=== PATIENT | male | born 1985 | race Caucasian/White ===

== ENCOUNTER 2016-12-07 15:08 | Emergency (ER) | payer SELFPAY ==
[~2016-12-07] VITALS: Ht 175.3 cm; Wt 74.8 kg
[2016-12-07 16:04] LABS: BASOPHILS # (AUTO) 0.1 /CMM (0.0-0.2); BASOPHILS % (AUTO) 1.1 % (0.0-2.0); DIFF TOTAL % 100 %; EOSINOPHILS # (AUTO) 0.3 /CMM (0.0-0.7); EOSINOPHILS % (AUTO) 3.7 % (0.0-6.0); HEMATOCRIT 43 % (39-51); HEMOGLOBIN 14.7 g/dL (13.5-17.5); LYMPHOCYTES % (AUTO) 32.8 % (20.0-44.0); MEAN CORPUSCULAR HEMOGLOBIN 35 PG (26.0-33.0); MEAN CORPUSCULAR HGB CONC 34 g/dl (31.0-36.0); MEAN CORPUSCULAR VOLUME 101 fL (80-96); MONOCYTES # (AUTO) 0.6 /CMM (0.1-1.30); MONOCYTES % (AUTO) 6.6 % (2.0-12.0); NEUTROPHILS # (AUTO) 5.1 /CMM (1.8-8.9); NEUTROPHILS % (AUTO) 55.8 % (43.0-81.0); PLATELET COUNT (AUTO) 190 /CMM (150-450); RED BLOOD CELL COUNT(AUTO) 4.26 MIL/uL (4.5-6.0); WHITE BLOOD COUNT (AUTO) 9.1 K/uL (4.3-11.0)
[2016-12-07 16:11] LABS: ANION GAP 13 (5-14); CALCIUM, SERUM 8.8 mg/dL (8.5-10.1); CARBON DIOXIDE 26 mmol/L (21-32); CHLORIDE 107 mmol/L (98-107); CREATININE 0.9 mg/dL (0.6-1.3); GFR 99 mL/min (>60); GLUCOSE 124 mg/dL (74-106); POTASSIUM 3.6 mmol/L (3.5-5.1); SODIUM SERUM 143 mmol/L (136-145); UREA NITROGEN, BLOOD 8 mg/dL (7-18)
[2016-12-07 16:21] LABS: CANNABINOID, URINE NEGATIVE (NEGATIVE); PHENCYCLIDINE SCREEN,URINE NEGATIVE (NEGATIVE)
[2016-12-07] MEDS ORDERED: WATER FOR INJECTION,STERILE 10 ML ONE (17:06)
[2016-12-07] MEDS ORDERED: OLANZAPINE 10 MG VIAL IM ONE (17:06)
[2016-12-07 18:57] VITALS: BP 142/88
== END 2016-12-07 18:18 | disposition home or self-care (01) ==
LOC: EDUNIT# 15:08 → ER 15:11 → EDBD 15:11 → ER 18:18
DX: F29 Unspecified psychosis not due to a substance or known physiological condition (principal); I10 Essential (primary) hypertension; F20.9 Schizophrenia, unspecified; F17.200 Nicotine dependence, unspecified, uncomplicated
CPT/HCPCS: 36415; 80048-TC; 80305; 85025-TC; A4606; G0480; J3490; Z7610

== ENCOUNTER 2020-01-14 00:28 | Emergency (ER) | payer MEDICAID, OTHER ==
[~2020-01-14] VITALS: Ht 170.2 cm; Wt 68.0 kg
--- NOTE | 2020-01-14 00:28 | NUR ---
TO ER BED 15 AMBULATORY C/O SI WITH PLAN TO RUN INTO TRAFFIC. PT DENIES HI. PT AAOX4 NO ACUTE DISTRESS NOTED, RESP EVEN AND UNLABORED. PT CALM AND COOPERATIVE AT THIS TIME. PT ADMITS TO SMOKING BUT DENEIS DRUG USE. PLACE PT ON HOSPITAL GOWN, ALL BELONGINGS REMOVED FROM ROOM AND PLACED IN A LOCKED HOSPITAL LOCKER. 1:1 SITTER AT BEDSIDE FOR PT SAFETY.
--- NOTE | 2020-01-14 00:40 | NUR ---
URINE SPECIMEN COLLECTED AND SENT TO LAB.
--- NOTE | 2020-01-14 00:50 | NUR ---
SEEN AND EXAMINED BY .
--- NOTE | 2020-01-14 00:50 | NUR ---
ER MD AT BEDSIDE TO EVAL PT WITH ORDERS RECEIVED. WILL CARRY OUT ORDERS.
[2020-01-14 00:58] LABS: APPEARANCE,URINE Clear (CLEAR); BILIRUBIN,URINE SMALL (NEGATIVE); BLOOD, URINE Negative Ery/uL (NEGATIVE); COLOR,URINE Yellow (YELLOW); KETONES,URINE 15 (NEGATIVE); LEUKOCYTE ESTERASE ,URINE Negative (NEGATIVE); NITRITE, URINE Negative (NEGATIVE); PROTEIN,URINE Negative (NEGATIVE); UGLUCOSE Negative (NEGATIVE)
[2020-01-14 01:02] LABS: BASOPHILS % (AUTO) 0.7 % (0.0-2.0); EOSINOPHILS % (AUTO) 2.1 % (0.0-6.0); HEMATOCRIT 39 % (39-51); HEMOGLOBIN 13.8 g/dL (13.5-17.5); LYMPHOCYTES # (AUTO) 2.1 /CMM (0.8-4.8); LYMPHOCYTES % (AUTO) 34.9 % (20.0-44.0); MEAN CORPUSCULAR HGB CONC 35 g/dl (31.0-36.0); MEAN CORPUSCULAR VOLUME 100 fL (80-96); MONOCYTES # (AUTO) 0.5 /CMM (0.1-1.30); MONOCYTES % (AUTO) 8.2 % (2.0-12.0); NEUTROPHILS # (AUTO) 3.2 /CMM (1.8-8.9); NEUTROPHILS % (AUTO) 54.1 % (43.0-81.0); PLATELET COUNT (AUTO) 184 /CMM (150-450); RED BLOOD CELL COUNT(AUTO) 3.91 MIL/uL (4.5-6.0); WHITE BLOOD COUNT (AUTO) 5.9 K/uL (4.3-11.0)
[2020-01-14 01:09] LABS: CALCIUM, SERUM 8.6 mg/dL (8.5-10.1); CARBON DIOXIDE 30 mmol/L (21-32); CHLORIDE 103 mmol/L (98-107); CREATININE 0.9 mg/dL (0.6-1.3); GLUCOSE 145 mg/dL (74-106); POTASSIUM 3.6 mmol/L (3.5-5.1); SODIUM SERUM 140 mmol/L (136-145); UREA NITROGEN, BLOOD 20 mg/dL (7-18)
[2020-01-14 01:15] LABS: ACETAMINOPHEN 0 ug/ml (10-30); ALANINE AMINOTRANSFERASE 52 U/L (12-78); ALBUMIN 3.8 g/dL (3.4-5.0); ALCOHOL, BLOOD < 3 mg/dL (0-0); ALKALINE PHOSPHATASE 68 U/L (46-116); ASPARTATE AMINOTRANSFERASE 38 U/L (15-37); BILIRUBIN,DIRECT 0.2 mg/dL (0.0-0.2); BILIRUBIN,TOTAL 0.6 mg/dL (0.2-1.0); SALICYLATE 0.6 mg/dL (2.8-20.0); TOTAL PROTEIN, SERUM 7.1 g/dL (6.4-8.2)
--- NOTE | 2020-01-14 01:27 | NUR ---
PT ASLEEP, NO ACUTE DISTRESS NOTED, RESP EVEN AND UNLABORED. CALL LIGHT WITHIN REACH. 1:1 SITTER REMAINS AT BEDSIDE FOR PT SAFETY.
--- NOTE | 2020-01-14 01:33 | NUR ---
CLINICAL INFORMATION FAXED TO [facility]
--- NOTE | 2020-01-14 03:52 | NUR ---
PT ACCEPTED TO [facility] ACCE[facility]ING MD: DR. MARTIN NUMBER FOR REPORT: [phone] [facility] ETA 0440 TRIP #[id number]
[2020-01-14 04:00] VITALS: BP 129/77
--- NOTE | 2020-01-14 04:00 | NUR ---
REPORT GIVEN TO SIDRA RIVAS OF [facility] FOR ANGIE.
--- NOTE | 2020-01-14 05:06 | NUR ---
REPORT GIVEN TO EMS FOR PT TRANSFER TO [facility].
== END 2020-01-14 05:30 ==
LOC: ER 00:33
DX: R45.851 Suicidal ideations (principal); I10 Essential (primary) hypertension; F20.9 Schizophrenia, unspecified; F17.200 Nicotine dependence, unspecified, uncomplicated
CPT/HCPCS: 36415; 80048; 80076; 80305; 80307; 80329; 81001; 85025; 99285; G0480; 81000-TC

== ENCOUNTER 2020-02-24 22:06 | Emergency (ER) | payer MEDICAID ==
--- NOTE | 2020-02-24 22:25 | NUR ---
pt called to be triaged, pt refused to answer any questions. pt was then asked to go back in waiting room. pt walked out to waiting room, upon exiting patient tried to punch, pt's hand hit the wall. pt then left the facility. called security at this time
== END 2020-02-24 22:31 | disposition left against medical advice (07) ==
LOC: ER 22:08
DX: Z53.21 Procedure and treatment not carried out due to patient leaving prior to being seen by health care provider (principal)

== ENCOUNTER 2020-07-07 05:50 | Emergency (ER) | payer MEDICAID ==
[~2020-07-07] VITALS: Ht 170.2 cm; Wt 68.0 kg
--- NOTE | 2020-07-07 05:55 | NUR ---
TO ER BED 15 AMBULATORY C/O SI WITH PLAN TO RUN INTO TRAFFIC. DENIES HI. PT AAOX4 NO ACUTE DISTRESS NOTED, RESP EVEN AND UNLABORED. PT CALM AND COOPERATIVE AT THIS TIME. PENDING ER MD TREVIZO.
--- NOTE | 2020-07-07 06:00 | NUR ---
URINE SAMPLE COLLECTED AND SENT TO LAB.
--- NOTE | 2020-07-07 06:11 | NUR ---
SECURITY AT BEDSIDE FOR WANDING.
[2020-07-07 06:56] LABS: BASOPHILS % (AUTO) 0.5 % (0.0-2.0); EOSINOPHILS % (AUTO) 0.4 % (0.0-6.0); HEMATOCRIT 46 % (39-51); HEMOGLOBIN 15.9 g/dL (13.5-17.5); LYMPHOCYTES # (AUTO) 1.5 /CMM (0.8-4.8); LYMPHOCYTES % (AUTO) 19.4 % (20.0-44.0); MEAN CORPUSCULAR HGB CONC 35 g/dl (31.0-36.0); MEAN CORPUSCULAR VOLUME 102 fL (80-96); MONOCYTES # (AUTO) 0.7 /CMM (0.1-1.30); MONOCYTES % (AUTO) 8.3 % (2.0-12.0); NEUTROPHILS # (AUTO) 5.6 /CMM (1.8-8.9); NEUTROPHILS % (AUTO) 71.4 % (43.0-81.0); PLATELET COUNT (AUTO) 181 /CMM (150-450); RED BLOOD CELL COUNT(AUTO) 4.48 MIL/uL (4.5-6.0); WHITE BLOOD COUNT (AUTO) 7.9 K/uL (4.3-11.0)
[2020-07-07 07:04] LABS: ALANINE AMINOTRANSFERASE 39 U/L (12-78); ALBUMIN 4.6 g/dL (3.4-5.0); ALCOHOL, BLOOD < 3 mg/dL (0-0); ALKALINE PHOSPHATASE 86 U/L (46-116); ASPARTATE AMINOTRANSFERASE 29 U/L (15-37); BILIRUBIN,DIRECT 0.1 mg/dL (0.0-0.2); BILIRUBIN,TOTAL 0.6 mg/dL (0.2-1.0); CALCIUM, SERUM 9.8 mg/dL (8.5-10.1); CARBON DIOXIDE 30 mmol/L (21-32); CHLORIDE 101 mmol/L (98-107); GLUCOSE 119 mg/dL (74-106); POTASSIUM 4.4 mmol/L (3.5-5.1); SODIUM SERUM 140 mmol/L (136-145); TOTAL PROTEIN, SERUM 8.5 g/dL (6.4-8.2); UREA NITROGEN, BLOOD 19 mg/dL (7-18)
--- NOTE | 2020-07-07 07:12 | NUR ---
ASSESSED PT ON BED AWAKE AND ALERT, NOT IN RESPIRATORY DISTRESS, V/S STABLE, KEPT RESTED AND COMFORTABLE. WILL CONTINUE TO MONITOR.
[2020-07-07 07:21] LABS: ACETAMINOPHEN < 10 ug/ml (10-30); SALICYLATE 1.2 mg/dL (2.8-20.0)
--- NOTE | 2020-07-07 07:56 | NUR ---
CALLED LAB FOR URINE DRUGSCREEN RESULT. PER CLS WILL CALL BACK IN 10 MINS.
[2020-07-07 08:07] LABS: APPEARANCE,URINE CLOUDY (CLEAR); BILIRUBIN,URINE SMALL (NEGATIVE); BLOOD, URINE NEGATIVE Ery/uL (NEGATIVE); COLOR,URINE YELLOW (YELLOW); KETONES,URINE NEGATIVE (NEGATIVE); LEUKOCYTE ESTERASE ,URINE NEGATIVE (NEGATIVE); NITRITE, URINE NEGATIVE (NEGATIVE); PROTEIN,URINE TRACE mg/dl (NEGATIVE); UGLUCOSE NEGATIVE (NEGATIVE); UROBILINOGEN,URINE 0.2 EU/dL (0.2)
[2020-07-07 08:22] LABS: BACTERIA,URINE None seen /HPF (None Seen); RBC,URINE NONE SEEN /HPF (0-2); WBC,URINE NONE SEEN /HPF (0-3)
[2020-07-07 08:23] LABS: SQUAMOUS EPITHELIAL CELL,UR None Seen /HPF (None Seen); URINE AMORPHOUS URATE Many /HPF (None Seen)
--- NOTE | 2020-07-07 09:02 | NUR ---
[phone]
--- NOTE | 2020-07-07 10:41 | NUR ---
Patient is a 35-year-old male who presented to [facility] ER with suicidal ideation. Per MD note, Patient states he was last hospitalized approximately 2 to 3 weeks ago at [facility]. Currently he states that he feels suicidal and wants to run in front of traffic. Patient is alert and oriented x4. Patient was receptive to speaking with this SW as he sat up and made direct eye contact. Patient confirmed demographics including date of and social security number. Per patient, patient is homeless and has been for 5 years. Patient states his general area is [place]. Patient reports he has no family or friends. Patient reports that he is not working nor receiving government aid. Per patient, he knows where to get food and take a shower. Patient denies alcohol, drug, and cigarette use. Per patient, he was diagnosed with schizophrenia in 2009. Patient reports that he is currently not taking his medications because he has not been able to afford them. Patient currently reports auditory hallucinations, per patient Hearing some right now, telling me to do some crazy stuff. Patient denies visual hallucinations. Patient reports current suicidal ideation to run into traffic. Patient denies homicidal ideation. Patient did not want homeless resources that SW offered the patient; patient did browse through the resource packet offered and stated, I know all of these places already. And returned resource packet to this SW. Per patient, he would like to enter voluntary psychiatric treatment. Per neurology physician assistantKeely Panchal, he has faxed over clinicals to [facility] Intake per request of PARALEGAL SECRETARYSIDRA OHARA to follow up with [facility]. This SW to remain available for all needs regarding this patient.
--- NOTE | 2020-07-07 11:05 | NUR ---
SPOKED TO SMITA DIRECTOR PROFESSIONAL SERVICES AT [facility]. WILL CALL BACK AGAIN IF PT WILL BE ACCEPTED AT [place] [facility] OR [facility].
--- NOTE | 2020-07-07 11:19 | NUR ---
BEATA CALLED PT IS BEING ACC[facility]ED TO [facility] MD MARTIN UNIT TWO. CALL [phone] FOR REPORT.
--- NOTE | 2020-07-07 11:34 | NUR ---
TRANSPORT CALLED [facility] [phone] ETA 1430 PER GURDEEP.
--- NOTE | 2020-07-07 11:36 | NUR ---
REPORT GIVEN TO SIDRA VALDOVINOS OF [facility] FOR [facility].
--- NOTE | 2020-07-07 13:00 | NUR ---
FOOD TRAY PROVIDED
--- NOTE | 2020-07-07 13:10 | NUR ---
PT STATED HE DOESNT WANT TO PROCEED FOR PSYCH ADMISSION AND HE IS NOT SUICIDAL ANYMORE. .
--- NOTE | 2020-07-07 13:15 | NUR ---
Patient given written and verbal discharge instructions. Patient verbalizes understanding of instructions. Patient is ambulatory with steady gait. Refuses offer of fpc placement. Patient given list of available shelters in surrounding area.
[2020-07-07 13:16] VITALS: BP 136/88
== END 2020-07-07 13:16 | disposition home or self-care (01) ==
LOC: ER 05:54
DX: R45.851 Suicidal ideations (principal); F20.9 Schizophrenia, unspecified; I10 Essential (primary) hypertension; F17.200 Nicotine dependence, unspecified, uncomplicated
CPT/HCPCS: 36415; 80048; 80076; 80305; 80307; 80329; 81001; 85025; 99285; G0480; 81000-TC

== ENCOUNTER 2020-07-19 06:28 | Emergency (ER) | payer MEDICAID ==
[~2020-07-19] VITALS: Ht 170.2 cm; Wt 68.0 kg
--- NOTE | 2020-07-19 06:52 | NUR ---
PATIENT CAME TO ER BED SIPLANS TO OVERDOSE ON MEDICATIONS. PATIENT AMBULATORY WITH A STEADY GAIT. BREATHING EVENLY AND UNLABORED ON ROOM AIR. PATIENT'S BELONGINGS ARE REMOVED AND PLACED IN LOCKER. PATIENT CHANGED INTO A GOWN.
--- NOTE | 2020-07-19 07:00 | NUR ---
URINE COLLECTED AND SENT TO THE LAB FOR ANGIE.
[2020-07-19 07:56] LABS: APPEARANCE,URINE Clear (CLEAR); BILIRUBIN,URINE MODERATE (NEGATIVE); BLOOD, URINE Negative Ery/uL (NEGATIVE); COLOR,URINE Dark (YELLOW); KETONES,URINE 40 (NEGATIVE); LEUKOCYTE ESTERASE ,URINE Negative (NEGATIVE); NITRITE, URINE Negative (NEGATIVE); PROTEIN,URINE Negative (NEGATIVE); UGLUCOSE Negative (NEGATIVE); UROBILINOGEN,URINE 0.2 EU/dL (0.2)
[2020-07-19 07:58] LABS: BACTERIA,URINE Rare /HPF (None Seen); RBC,URINE 0-2 /HPF (0-2); SQUAMOUS EPITHELIAL CELL,UR Few /HPF (None Seen); WBC,URINE 0-2 /HPF (0-3)
[2020-07-19 08:00] LABS: BASOPHILS % (AUTO) 0.5 % (0.0-2.0); EOSINOPHILS % (AUTO) 2.8 % (0.0-6.0); HEMATOCRIT 41 % (39-51); HEMOGLOBIN 14.3 g/dL (13.5-17.5); LYMPHOCYTES # (AUTO) 1.4 /CMM (0.8-4.8); LYMPHOCYTES % (AUTO) 24.1 % (20.0-44.0); MEAN CORPUSCULAR HGB CONC 35 g/dl (31.0-36.0); MEAN CORPUSCULAR VOLUME 102 fL (80-96); MONOCYTES # (AUTO) 0.4 /CMM (0.1-1.30); MONOCYTES % (AUTO) 7.3 % (2.0-12.0); NEUTROPHILS # (AUTO) 3.8 /CMM (1.8-8.9); NEUTROPHILS % (AUTO) 65.3 % (43.0-81.0); PLATELET COUNT (AUTO) 150 /CMM (150-450); WHITE BLOOD COUNT (AUTO) 5.9 K/uL (4.3-11.0)
[2020-07-19 08:24] LABS: ALANINE AMINOTRANSFERASE 19 U/L (12-78); ALBUMIN 4.1 g/dL (3.4-5.0); ALCOHOL, BLOOD < 3 mg/dL (0-0); ALKALINE PHOSPHATASE 65 U/L (46-116); ASPARTATE AMINOTRANSFERASE 21 U/L (15-37); BILIRUBIN,DIRECT 0.2 mg/dL (0.0-0.2); BILIRUBIN,TOTAL 0.9 mg/dL (0.2-1.0); CARBON DIOXIDE 29 mmol/L (21-32); CHLORIDE 102 mmol/L (98-107); CREATININE 0.8 mg/dL (0.6-1.3); GLUCOSE 119 mg/dL (74-106); POTASSIUM 3.5 mmol/L (3.5-5.1); SODIUM SERUM 139 mmol/L (136-145); TOTAL PROTEIN, SERUM 7.3 g/dL (6.4-8.2); UREA NITROGEN, BLOOD 9 mg/dL (7-18)
[2020-07-19 08:34] LABS: ACETAMINOPHEN < 10 ug/ml (10-30); SALICYLATE 0.9 mg/dL (2.8-20.0)
--- NOTE | 2020-07-19 09:43 | NUR ---
RAPID COVID19 SWAB DONE AND SENT TO LAB
--- NOTE | 2020-07-19 11:18 | NUR ---
REPORT GIVEN TO NURSING RESTORATIVE CARE TECHNICIAN CARRI. PENDING TRANSFER.
--- NOTE | 2020-07-19 11:57 | NUR ---
CALLED [facility] ETA IS 1315 PER [facility] TRIP NUMBER [id number]
--- NOTE | 2020-07-19 13:02 | NUR ---
REPORT GIVEN TO EMT FOR PT TRANSFER TO [facility].
[2020-07-19 13:05] VITALS: BP 131/88
== END 2020-07-19 13:06 ==
LOC: ER 06:31
DX: R45.851 Suicidal ideations (principal); Z87.74 Personal history of (corrected) congenital malformations of heart and circulatory system; F20.9 Schizophrenia, unspecified; Z59.0 Homelessness; I10 Essential (primary) hypertension; Z20.828 Contact with and (suspected) exposure to other viral communicable diseases
CPT/HCPCS: 36415; 80048; 80076; 80305; 80307; 80329; 81001; 85025; 87426; 99285; C9803; G0480; 81000-TC

== ENCOUNTER 2020-08-18 19:27 | Emergency (ER) | payer MEDICAID ==
[~2020-08-18] VITALS: Ht 170.2 cm; Wt 68.0 kg
--- NOTE | 2020-08-18 19:35 | NUR ---
CALLED FOR TRIAGE, PT NOT IN WAITING ROOM. NO ANSWER.
--- NOTE | 2020-08-18 19:41 | NUR ---
CALLED FOR TRIAGE, PT NOT IN WAITING ROOM. NO ANSWER.
--- NOTE | 2020-08-18 19:45 | NUR ---
CALLED FOR TRIAGE, PT NOT IN WAITING ROOM. NO ANSWER.
--- NOTE | 2020-08-18 19:50 | NUR ---
CALLED FOR TRIAGE, PT NOT IN WAITING ROOM. NO ANSWER.
--- NOTE | 2020-08-18 21:16 | NUR ---
PT CAME BACK AND WANTS TO BE SEEN.
--- NOTE | 2020-08-18 21:20 | NUR ---
PT BIBSELF C/O SUICIDAL IDEATION WITH PLAN TO RUN INTO TRAFFIC. AAOX4. CALM AND COOPERATIVE. VITAL SIGNS STABLE. SUICIDE PRECAUTIONS INITIATED, PT PLACED IN GOWN. BELONGINGS COLLECTED AND PLACED IN PATIENT LOCKER. SITTER AT BEDSIDE. WILL CONTINUE TO MONITOR
[2020-08-18 22:09] LABS: BASOPHILS % (AUTO) 0.5 % (0.0-2.0); EOSINOPHILS % (AUTO) 3.2 % (0.0-6.0); HEMATOCRIT 43 % (39-51); HEMOGLOBIN 14.9 g/dL (13.5-17.5); LYMPHOCYTES % (AUTO) 38.1 % (20.0-44.0); MEAN CORPUSCULAR HGB CONC 35 g/dl (31.0-36.0); MEAN CORPUSCULAR VOLUME 100 fL (80-96); MONOCYTES # (AUTO) 0.9 /CMM (0.1-1.30); MONOCYTES % (AUTO) 11.5 % (2.0-12.0); NEUTROPHILS # (AUTO) 3.7 /CMM (1.8-8.9); NEUTROPHILS % (AUTO) 46.7 % (43.0-81.0); PLATELET COUNT (AUTO) 171 /CMM (150-450); RED BLOOD CELL COUNT(AUTO) 4.29 MIL/uL (4.5-6.0); WHITE BLOOD COUNT (AUTO) 7.9 K/uL (4.3-11.0)
[2020-08-18 22:18] LABS: CALCIUM, SERUM 9.7 mg/dL (8.5-10.1); CARBON DIOXIDE 31 mmol/L (21-32); CHLORIDE 96 mmol/L (98-107); CREATININE 0.9 mg/dL (0.6-1.3); GLUCOSE 87 mg/dL (74-106); POTASSIUM 4.1 mmol/L (3.5-5.1); SODIUM SERUM 133 mmol/L (136-145); UREA NITROGEN, BLOOD 25 mg/dL (7-18)
[2020-08-18 22:24] LABS: ALANINE AMINOTRANSFERASE 13 U/L (12-78); ALBUMIN 4.2 g/dL (3.4-5.0); ALCOHOL, BLOOD < 3 mg/dL (0-0); ALKALINE PHOSPHATASE 64 U/L (46-116); ASPARTATE AMINOTRANSFERASE 22 U/L (15-37); BILIRUBIN,DIRECT 0.2 mg/dL (0.0-0.2); BILIRUBIN,TOTAL 0.8 mg/dL (0.2-1.0); TOTAL PROTEIN, SERUM 7.9 g/dL (6.4-8.2)
[2020-08-18] MEDS ORDERED: IV NS 0.9% 1,000 ML BAG IV ONE (22:30)
[2020-08-18 22:35] LABS: ACETAMINOPHEN < 2 ug/ml (10-30)
--- NOTE | 2020-08-18 22:50 | NUR ---
PT AAOX4. DENIES SI/HI AT THIS TIME. CAROLYNE COLINDRES AT BEDSIDE FOR REEVALUATION.
--- NOTE | 2020-08-18 23:00 | NUR ---
Patient discharged to home in stable condition. Written and verbal after care instructions given. Patient verbalizes understanding of instruction.Pt ambulatory with a steady gait
[2020-08-18 23:29] VITALS: BP 132/75
== END 2020-08-18 23:15 | disposition home or self-care (01) ==
LOC: ER 19:30
DX: R45.851 Suicidal ideations (principal); F20.9 Schizophrenia, unspecified; I10 Essential (primary) hypertension; F17.200 Nicotine dependence, unspecified, uncomplicated
CPT/HCPCS: 36415; 80048-TC; 80076-TC; 85025-TC; G0480; J7030

== ENCOUNTER 2021-01-09 18:24 | Emergency (ER) | payer MEDICAID ==
[~2021-01-09] VITALS: Ht 170.2 cm; Wt 85.7 kg
[2021-01-09 18:54] LABS: BASOPHILS % (AUTO) 0.9 % (0.0-2.0); EOSINOPHILS % (AUTO) 3.6 % (0.0-6.0); HEMATOCRIT 42 % (39-51); HEMOGLOBIN 14.7 g/dL (13.5-17.5); LYMPHOCYTES % (AUTO) 34.8 % (20.0-44.0); MEAN CORPUSCULAR HGB CONC 35 g/dl (31.0-36.0); MEAN CORPUSCULAR VOLUME 102 fL (80-96); MONOCYTES # (AUTO) 0.6 /CMM (0.1-1.30); MONOCYTES % (AUTO) 9.9 % (2.0-12.0); NEUTROPHILS # (AUTO) 2.9 /CMM (1.8-8.9); NEUTROPHILS % (AUTO) 50.8 % (43.0-81.0); PLATELET COUNT (AUTO) 169 /CMM (150-450); RED BLOOD CELL COUNT(AUTO) 4.08 MIL/uL (4.5-6.0); WHITE BLOOD COUNT (AUTO) 5.6 K/uL (4.3-11.0)
[2021-01-09 18:58] LABS: BILIRUBIN,URINE SMALL (NEGATIVE); COLOR,URINE YELLOW (YELLOW); LEUKOCYTE ESTERASE ,URINE Negative (NEGATIVE); NITRITE, URINE Negative (NEGATIVE); PH,URINE 5.5 (5.0-8.0); PROTEIN,URINE Trace mg/dl (NEGATIVE); UGLUCOSE Negative (NEGATIVE); UROBILINOGEN,URINE 0.2 EU/dL (0.2)
--- NOTE | 2021-01-09 19:06 | NUR ---
TOOK OVER PT CARE. PT AAOX4. AMBULATORY WITH STEADY GAIT. UPON SPEAKING TO THE PT HE STATES HE IS SUICIDAL WITH A PLAN TO RUN INTO TRAFFIC. PT REQUESTING TO BE TRANSFERED TO A [facility].
[2021-01-09 19:08] LABS: ALANINE AMINOTRANSFERASE 71 U/L (12-78); ALBUMIN 4.2 g/dL (3.4-5.0); ALKALINE PHOSPHATASE 64 U/L (46-116); ASPARTATE AMINOTRANSFERASE 73 U/L (15-37); BILIRUBIN,DIRECT 0.1 mg/dL (0.0-0.2); BILIRUBIN,TOTAL 0.4 mg/dL (0.2-1.0); CALCIUM, SERUM 9.1 mg/dL (8.5-10.1); CARBON DIOXIDE 31 mmol/L (21-32); CHLORIDE 101 mmol/L (98-107); GLUCOSE 98 mg/dL (74-106); POTASSIUM 3.4 mmol/L (3.5-5.1); SODIUM SERUM 141 mmol/L (136-145); TOTAL PROTEIN, SERUM 7.8 g/dL (6.4-8.2); UREA NITROGEN, BLOOD 18 mg/dL (7-18)
[2021-01-09 19:10] LABS: BACTERIA,URINE Rare /HPF (None Seen); MUCUS,URINE Rare /LPF (None Seen); RBC,URINE 0-2 /HPF (0-2); SQUAMOUS EPITHELIAL CELL,UR 0-2 /HPF (None Seen); WBC,URINE 0-2 /HPF (0-3)
[2021-01-09 19:11] LABS: ACETAMINOPHEN < 10 ug/ml (10-30); ALCOHOL, BLOOD < 3 mg/dL (0-0)
--- NOTE | 2021-01-09 19:21 | NUR ---
ARABELLAID SWABBED, SENT TO LAB.
[2021-01-09] MEDS ORDERED: POTASSIUM CHLORIDE 20 MEQ TAB.PRT.SR PO ONE ×2 (19:25→19:30)
--- NOTE | 2021-01-10 00:16 | NUR ---
PT AAOX4. CALM AND COOPERATIVE. STATES HE IS NO LONGER SUICIDAL/HOMICIDAL AT THIS TIME. AWARE. PER DR. NICHOLE, PT MEDICALLY CLEARED FOR DISCHARGE. PT REFUSING RESOURCES AT THIS TIME. REFUSED TO SIGN HOMELESS WAIVER. AWARE.
--- NOTE | 2021-01-10 00:19 | NUR ---
PT LEFT WITHOUT [facility]CI
[2021-01-10 00:20] VITALS: BP 134/79
== END 2021-01-10 00:20 | disposition home or self-care (01) ==
LOC: ER 18:26
DX: R45.851 Suicidal ideations (principal); F15.10 Other stimulant abuse, uncomplicated; F20.9 Schizophrenia, unspecified; F10.10 Alcohol abuse, uncomplicated; F12.90 Cannabis use, unspecified, uncomplicated; Y90.0 Blood alcohol level of less than 20 mg/100 ml; D75.89 Other specified diseases of blood and blood-forming organs; E87.6 Hypokalemia; R79.89 Other specified abnormal findings of blood chemistry; Z59.0 Homelessness; Z20.822 Contact with and (suspected) exposure to COVID-19; Z72.0 Tobacco use; Z82.49 Family history of ischemic heart disease and other diseases of the circulatory system; F41.9 Anxiety disorder, unspecified; Z65.2 Problems related to release from prison
CPT/HCPCS: 36415; 80048; 80076; 80299; 80307; 80320; 81001; 85025; 87426; 99285; 99406; C9803; G0480

== ENCOUNTER 2021-03-04 17:08 | Emergency (ER) | payer MEDICAID ==
[~2021-03-04] VITALS: Ht 167.6 cm; Wt 76.7 kg
--- NOTE | 2021-03-04 17:25 | NUR ---
pt bib mother, c/o suicidal ideation w/ plan to jump in front of train or roof. pt is homeless. [facility] and states he want to be admitted voluntary to psych facility. pt gowned. stable vitals. mother at bedside. awaiting md samuels.
--- NOTE | 2021-03-04 17:26 | NUR ---
priscila peralta at bedside for eval.
--- NOTE | 2021-03-04 17:30 | NUR ---
The patient alert and oriented x3. BIB mother, suicidal +si jump in front of a train. Requesting voluntary psych admission. Denies pain. In room air and denies SOB. Respiration regular and unlabored. Will continue to monitor the patient.
--- NOTE | 2021-03-04 17:58 | NUR ---
labor economics teacher at bedside for blood draw. covid swab collected and sent to lab.
[2021-03-04] MEDS ORDERED: OLANZAPINE 5 MG TABLET PO ONE (18:00)
[2021-03-04] MEDS ORDERED: OLANZAPINE 5 MG TABLET ONE (18:14)
[2021-03-04 18:23] LABS: BASOPHILS # (AUTO) 0.1 /CMM (0.0-0.2); BASOPHILS % (AUTO) 1.3 % (0.0-2.0); EOSINOPHILS % (AUTO) 3.9 % (0.0-6.0); HEMATOCRIT 42 % (39-51); HEMOGLOBIN 14.6 g/dL (13.5-17.5); LYMPHOCYTES # (AUTO) 1.9 /CMM (0.8-4.8); LYMPHOCYTES % (AUTO) 37.2 % (20.0-44.0); MEAN CORPUSCULAR HGB CONC 35 g/dl (31.0-36.0); MEAN CORPUSCULAR VOLUME 99 fL (80-96); MONOCYTES # (AUTO) 0.4 /CMM (0.1-1.30); MONOCYTES % (AUTO) 8.2 % (2.0-12.0); NEUTROPHILS # (AUTO) 2.6 /CMM (1.8-8.9); NEUTROPHILS % (AUTO) 49.4 % (43.0-81.0); PLATELET COUNT (AUTO) 195 /CMM (150-450); RED BLOOD CELL COUNT(AUTO) 4.23 MIL/uL (4.5-6.0); WHITE BLOOD COUNT (AUTO) 5.2 K/uL (4.3-11.0)
[2021-03-04 18:33] LABS: BILIRUBIN,URINE MODERATE (NEGATIVE); COLOR,URINE YELLOW (YELLOW); LEUKOCYTE ESTERASE ,URINE Negative (NEGATIVE); NITRITE, URINE Negative (NEGATIVE); PH,URINE 6.5 (5.0-8.0); PROTEIN,URINE 30 mg/dl (NEGATIVE); UGLUCOSE Negative (NEGATIVE)
[2021-03-04 18:36] LABS: ACETAMINOPHEN < 2 ug/ml (10-30); ALANINE AMINOTRANSFERASE 24 U/L (12-78); ALBUMIN 3.8 g/dL (3.4-5.0); ALCOHOL, BLOOD < 3 mg/dL (0-0); ALKALINE PHOSPHATASE 60 U/L (46-116); ASPARTATE AMINOTRANSFERASE 16 U/L (15-37); BILIRUBIN,DIRECT 0.1 mg/dL (0.0-0.2); BILIRUBIN,TOTAL 0.4 mg/dL (0.2-1.0); CALCIUM, SERUM 8.9 mg/dL (8.5-10.1); CARBON DIOXIDE 30 mmol/L (21-32); CHLORIDE 101 mmol/L (98-107); CREATININE 0.9 mg/dL (0.6-1.3); GLUCOSE 149 mg/dL (74-106); POTASSIUM 3.4 mmol/L (3.5-5.1); SODIUM SERUM 138 mmol/L (136-145); TOTAL PROTEIN, SERUM 7.1 g/dL (6.4-8.2); UREA NITROGEN, BLOOD 14 mg/dL (7-18)
[2021-03-04 18:37] LABS: BACTERIA,URINE Rare /HPF (None Seen); RBC,URINE NONE SEEN /HPF (0-2); SQUAMOUS EPITHELIAL CELL,UR Few /HPF (None Seen); WBC,URINE NONE SEEN /HPF (0-3)
--- NOTE | 2021-03-04 18:52 | NUR ---
LAB CALLED PT COVID RESULT NEGATIVE (-)
[2021-03-04] MEDS ORDERED: POTASSIUM CHLORIDE 20 MEQ TAB.PRT.SR PO ONE (19:00)
--- NOTE | 2021-03-05 02:45 | NUR ---
TRANSFER INFORMATION: PT ACCEPTED TO [facility] MD: DR. METZ/DR. LERMA NUMBER FOR REPORT: [phone] UNIT 2
--- NOTE | 2021-03-05 02:48 | NUR ---
[facility] ETA 1HR
[2021-03-05 02:53] VITALS: BP 128/79
--- NOTE | 2021-03-05 03:01 | NUR ---
REPORT GIVEN TO SALOMÓN VALENTE FOR ANGIE
--- NOTE | 2021-03-05 03:43 | NUR ---
REPORT GIVEN TO [facility], WILL BE TRANSFERED.
--- NOTE | 2021-03-05 03:48 | NUR ---
PT WAS TRANSFERRED TO [facility] VIA [facility] IN STABLE CONDITION. ALL BELONGINGS WERE PICKED UP
== END 2021-03-05 03:50 ==
LOC: ER 17:12
DX: R45.851 Suicidal ideations (principal); F19.10 Other psychoactive substance abuse, uncomplicated; Z87.74 Personal history of (corrected) congenital malformations of heart and circulatory system; F20.9 Schizophrenia, unspecified; I10 Essential (primary) hypertension; Z20.822 Contact with and (suspected) exposure to COVID-19; Z59.0 Homelessness; F17.200 Nicotine dependence, unspecified, uncomplicated
CPT/HCPCS: 36415; 80048; 80076; 80299; 80307; 80320; 81001; 85025; 87426; 99285; C9803; G0480

== ENCOUNTER 2021-04-03 21:31 | Emergency (ER) | payer MEDICAID, OTHER ==
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
== END 2021-04-03 22:38 ==
LOC: ER 21:33
DX: Z53.21 Procedure and treatment not carried out due to patient leaving prior to being seen by health care provider (principal)

== ENCOUNTER 2025-04-06 11:41 | Emergency (ER) | payer MEDICAID, OTHER ==
[~2025-04-06] VITALS: Ht 167.6 cm; Wt 68.0 kg
[2025-04-06] MEDS ORDERED: LIDOCAINE HCL/MPF 1% 30 ML VIAL IJ ONE (12:04)
[2025-04-06] MEDS ORDERED: SULFAMETH/TRIMETH 800/160 MG 1 UDTAB TABLET ONE (12:19)
[2025-04-06] MEDS ORDERED: ONDANSETRON HCL/PF 4 MG/2 ML VIAL ONE (12:19)
[2025-04-06] MEDS ORDERED: SULF1TAB48 PO (12:26)
[2025-04-06] MEDS ORDERED: IV NS 0.9% 1,000 ML BAG IV ONE (12:30)
[2025-04-06] MEDS ORDERED: ONDANSETRON HCL/PF - ER 4 MG/2 ML VIAL IV ONE (12:30)
[2025-04-06] MEDS: SULFAMETH/TRIMETH 800/160 MG 1 UDTAB TABLET PO ONE (12:33)
[2025-04-06 12:44] VITALS: BP 138/86; TEMP 97.8; O2SAT 97
== END 2025-04-06 12:45 | disposition home or self-care (01) ==
LOC: ER 11:47
DX: L03.011 Cellulitis of right finger (principal); R11.2 Nausea with vomiting, unspecified; F17.200 Nicotine dependence, unspecified, uncomplicated; F20.9 Schizophrenia, unspecified; I10 Essential (primary) hypertension; F19.10 Other psychoactive substance abuse, uncomplicated; Z59.00 Homelessness unspecified; Z86.79 Personal history of other diseases of the circulatory system
CPT/HCPCS: 99283; 10060; J2405 ×2; J3490